=== PATIENT | male | born 1970 | race African-American/Black ===

== ENCOUNTER 2018-08-23 15:23 | Emergency (ER) | payer MEDICAID ==
[~2018-08-23] VITALS: Ht 193 cm; Wt 120.4 kg
[2018-08-23] MEDS ORDERED: SODIUM CHLORIDE 0.9% 1,000 ML IV ONE (18:05)
[2018-08-23] MEDS ORDERED: ACETAMINOPHEN 325MG TABLET PO STA (18:05)
[2018-08-23 19:12] LABS: HEMATOCRIT. 47.2 % (42.0-52.0); HEMOGLOBIN. 15.6 g/dL (14.0-18.0); MEAN CORPUSCULAR VOLUME 84.9 fL (80.0-94.0); PLATELET 258 x1000/uL (130-400); RED BLOOD CELL COUNT 5.56 mill/uL (4.7-6.1); RED CELL DISTRIBUTION WIDTH 14.3 % (11.6-14.6)
[2018-08-23 19:16] LABS: CHLORIDE 105 mEq/L (98-107)
[2018-08-23 19:18] LABS: PROTHROMBIN TIME 10.5 sec (9.1-11.1)
[2018-08-23 19:20] LABS: ETHANOL BLOOD < 10 mg/dL
[2018-08-23 19:36] LABS: PLATELET ESTIMATE NORMAL
[2018-08-23 22:41] LABS: CLARITY URINE CLEAR (CLEAR); COLOR URINE YELLOW (YELLOW); KETONES URINE TRACE (NEGATIVE); LEUKOCYTE ESTERASE URINE NEGATIVE (NEGATIVE); NITRITE URINE NEGATIVE (NEGATIVE); OCCULT BLOOD URINE NEGATIVE (NEGATIVE); PROTEIN URINE NEGATIVE (NEGATIVE); SPECIFIC GRAVITY URINE 1.026 (1.005-1.030); UROBILINOGEN URINE 0.2 E.U./dL (0.2-1.0)
[2018-08-24 00:27] VITALS: BP 116/75
== END 2018-08-24 00:27 | disposition home or self-care (01) ==
LOC: ER 15:23
DX: R10.32 Left lower quadrant pain (principal); E86.0 Dehydration; I10 Essential (primary) hypertension; F31.9 Bipolar disorder, unspecified; F17.200 Nicotine dependence, unspecified, uncomplicated
CPT/HCPCS: 36415; 74176; 80053; 81003; 83690; 84484; 85025; 85610; 96360; 99285; G0482; J7030